=== PATIENT | male | born 1955 | race Caucasian/White ===

== ENCOUNTER 2019-08-04 10:10 | Inpatient (IN) ==
--- NOTE | 2019-08-04 11:19 | RAD ---
HISTORYSOB, CP, AFIBSTUDYCHEST, 1 VIEWCOMPARISONNoneFINDINGSThe trachea is midline. The cardiac silhouette is unremarkable . The lung apices are partially obscured by overlying soft tissues. Otherwise the visualized lungs are relatively clear without focal infiltrate or effusion. Previous CTA of the chest performed on July 14, 2019 noted aneurysmal dilatation of the ascending thoracic aorta measuring 4.8 x 4.9 centimeters. Postoperative changes of midline sternotomy are noted.IMPRESSIONNo acute cardiopulmonary disease as discussed above.Electronically signed by: KENNEDI BUSTILLO (Aug 04, 2019 11:17:36)
[2019-08-04 11:28] LABS: BASOPHILS # (AUTO) 0.1 X10^3/uL (0.0-0.1); EOSINOPHILS # (AUTO) 0.1 x10^3/uL (0.0-0.2); EOSINOPHILS % (AUTO) 0.9 % (0.9-2.9); HEMATOCRIT 44.2 % (42.0-54.0); HEMOGLOBIN 15.2 g/dL (13.5-18.0); LYMPHOCYTES # (AUTO) 1.2 X10^3/uL (1.3-2.9); MEAN CORPUSCULAR HEMOGLOBIN 31.7 pg (27.0-34.0); MEAN CORPUSCULAR HGB CONC 34.4 g/dL (33.0-35.0); MEAN PLATELET VOLUME 7.8 fL (7.4-11.0); MONOCYTES # (AUTO) 1.1 x10^3/uL (0.3-0.8); MONOCYTES % (AUTO) 15.3 % (0.0-13.0); NEUTROPHILS # (AUTO) 4.6 x10^3/uL (2.2-4.8); NEUTROPHILS % (AUTO) 65.8 % (42.0-75.0); PLATELET COUNT 218 X10^3/uL (150.0-450.0); RED BLOOD COUNT 4.81 X10^6/uL (4.7-6.0); RED CELL DISTRIBUTION WIDTH 13.9 % (11.6-16.5)
[2019-08-04] MEDS: NS 1000 ML 1,000 ML IV SCH (11:44)
[2019-08-04 11:45] LABS: BLOOD UREA NITROGEN 16 mg/dL (7-18); CALCIUM 8.7 mg/dL (8.5-10.1); CHLORIDE 98 mmol/L (98-107); COR NA(FOR HYPERGLY) 135 mmol/L (136-145); CREATININE 1.02 mg/dL (0.70-1.30); SODIUM 134 mmol/L (136-145); TROPONIN I 0.05 ng/mL (0-1.5); eGFR NON BLACK RACES > 60 (>60)
[2019-08-04 11:50] LABS: ALANINE AMINOTRANSFERASE 20 Units/L (12-78); ALBUMIN 3.6 g/dL (3.4-5.0); ALKALINE PHOSPHATASE 66 Units/L (46-116); ASPARTATE AMINO TRANSFERASE 21 Units/L (15-37); CKMB % 1.2 % (<4); CREATINE KINASE 108 Units/L (39-308); CREATINE KINASE MB 1.3 ng/mL (0-4.0); TOTAL PROTEIN 7.4 g/dL (6.4-8.2)
[2019-08-04] MEDS ORDERED: LANOXIN INJ IVP SCH (13:00)
[2019-08-04] MEDS ORDERED: NEXTERONE IV 150 MG PREMIX* 150 MG/100 ML BAG IV ONE (13:00)
[2019-08-04] MEDS ORDERED: NEXTERONE IV 360 MG PREMIX* 360 MG/200 ML BAG IV NR (13:30)
[2019-08-04 16:21] VITALS: BMI 26.9
--- NOTE | 2019-08-04 16:56 | DR.H&P ---
H&P - History & Physical for Day of: H&P Date: 08/04/19 - Chief Complaint Chief Complaint: HEART RACING, SOB, CHEST PAIN - History of Present Illness History of Present Illness: PT IS 64 WM DIRECT ADMIT FROM DR JACQUES OFFICE WITH CO CHEST PAIN AND INCREASED HEART RATE THAT STARTED OVER THE WEEKEND. PT HAD DOCUMENTED BP AND PULSE WITH RATE UP TO 150 AT HOME. PT STATES HE WAS SOB AND STAYED IN BED. PT IS CURRENTLY ON BB AND LOSARTAN FOR BP CONTROL, COUMADIN ANTICOAGULANT THERAPY DUE TO ARTIFICIAL HEART VALVE. PT HAS NO DOCUMENT HX OF ATRIAL FIBRILLATION, HAS BEEN UNDER THE CARE OF [facility]. PT HAD EKG IN OFFICE WITH AFIB, RVR. PT ADMITTED TO ICU FOR EVALUATION AND TREATMENT. - Past Medical History Past Medical History: Arthritis, GERD, Hypertension - Past Surgical History Surgical History: CABG/Valve Surgery - Social History Does patient currently use any type of tobacco product: Yes Have you used tobacco products in the last 12 months: Yes Type of Tobacco Use: Cigarettes Alcohol Use: None Drug Use: None - Medications Home Medications: Iodinated Contrast Media [Iodinated Contrast- Oral and IV Dye] Allergy (Verified 05/01/19 10:24) CONTINUE taking the following medications losartan-hydrochlorothiazide 1 tab PO DAILY 08/04/19 [History] - Review of Systems Constitutional: Weakness Eyes: No Symptoms Reported ENT: No Symptoms Reported Respiratory: Shortness of Breath Cardiovascular: Chest Pain, Palpitations, Light Headedness Gastrointestinal: No Symptoms Reported Genitourinary: No Symptoms Reported Musculoskeletal: No Symptoms Reported Skin: No Symptoms Reported Neurological: Weakness - Physical Exam Vital Signs: Temperature 98.5 F Pulse Rate [Apical] 88 Pulse Rate 107 Respiratory Rate 24 Blood Pressure [Right Arm] 113/74 Blood Pressure [Left Arm] 112/70 Blood Pressure 106/60 O2 Sat by Pulse Oximetry 94 Oriented: Normal Eyes: Normal Ear: Normal Nose: Normal Throat: Normal Respiratory: RLL Diminished, LLL Diminished Cardiovascular: Tachycardia, Irregular : Normal Auscultation: Bowel Sounds: Normal Palpation: Normal Tenderness: Normal Skin: Normal Musculoskeletal: Normal Psychiatric: Anxiety Affect: Anxious Speech Pattern: Clear, Appropriate - Assessment/Plan (1) New onset a-fib Status: Acute Plan: PT ADMITTED TO ICU. SERIAL CE AND EKG. CONTINOUS CARDIAC MONITORING AND BP CONTROL. AMIODARONE DRIP PER PROTOCOL, DIGOXIN .25 IV X 1 DOSE. ADMISSION L ABS CBC CMP BNP CXR ON ADMISSION. VERIFY HOME MEDICATION (2) Chest pain Status: Acute (3) Palpitations Status: Acute (4) Shortness of breath Status: Acute - Review H&P Reviewed: No Patient was examined?: No - Allergies Allergies/Adverse Reactions: Allergies Allergy/AdvReac Type Severity Reaction Status Date / Time Iodinated Contrast Media Allergy Verified 05/01/19 10:24 [Iodinated Contrast- Oral and IV Dye]
[2019-08-04 17:54] LABS: CKMB % 1.1 % (<4); TROPONIN I 0.06 ng/mL (0-1.5)
[2019-08-04] MEDS: NEXTERONE IV 360 MG PREMIX* 360 MG/200 ML BAG IV NR (19:45)
[2019-08-04 23:27] LABS: CKMB % 1.2 % (<4); CREATINE KINASE 85 Units/L (39-308); CREATINE KINASE MB < 1.0 ng/mL (0-4.0); TROPONIN I 0.06 ng/mL (0-1.5)
[2019-08-05] MEDS ORDERED: SOLU-Medrol 40 MG VIAL IVP ONE (00:43)
[2019-08-05] MEDS ORDERED: SOLU-Medrol 125 MG VIAL ONE (00:43)
[2019-08-05] MEDS ORDERED: SOLU-Medrol 40 MG VIAL ONE (00:45)
[2019-08-05] MEDS ORDERED: XOPENEX 1.25 MG/3 ML NEBULE NEB PRN (00:48)
[2019-08-05] MEDS: NS 1000 ML 1,000 ML IV SCH (01:01)
[2019-08-05 06:03] LABS: BASOPHILS # (AUTO) 0.1 X10^3/uL (0.0-0.1); BASOPHILS % (AUTO) 0.8 % (0.2-1.0); EOSINOPHILS % (AUTO) 0.2 % (0.9-2.9); HEMATOCRIT 40.1 % (42.0-54.0); HEMOGLOBIN 13.8 g/dL (13.5-18.0); LYMPHOCYTES # (AUTO) 0.5 X10^3/uL (1.3-2.9); LYMPHOCYTES % (AUTO) 6.6 % (21.0-51.0); MEAN CORPUSCULAR HEMOGLOBIN 31.7 pg (27.0-34.0); MEAN CORPUSCULAR HGB CONC 34.3 g/dL (33.0-35.0); MEAN CORPUSCULAR VOLUME 92.2 fL (80.0-100.0); MONOCYTES # (AUTO) 0.2 x10^3/uL (0.3-0.8); MONOCYTES % (AUTO) 2.6 % (0.0-13.0); NEUTROPHILS # (AUTO) 6.5 x10^3/uL (2.2-4.8); NEUTROPHILS % (AUTO) 89.8 % (42.0-75.0); PLATELET COUNT 206 X10^3/uL (150.0-450.0); RED BLOOD COUNT 4.35 X10^6/uL (4.7-6.0); RED CELL DISTRIBUTION WIDTH 13.9 % (11.6-16.5); WHITE BLOOD COUNT 7.3 X10^3/uL (3.6-10.0)
[2019-08-05 06:28] LABS: ALANINE AMINOTRANSFERASE 19 Units/L (12-78); ALBUMIN 3.3 g/dL (3.4-5.0); ALKALINE PHOSPHATASE 53 Units/L (46-116); ASPARTATE AMINO TRANSFERASE 23 Units/L (15-37); BLOOD UREA NITROGEN 16 mg/dL (7-18); CALCIUM 8.1 mg/dL (8.5-10.1); CHLORIDE 103 mmol/L (98-107); COR CA(FOR HYPOALB) 8.7 mg/dL (8.5-10.1); COR NA(FOR HYPERGLY) 139 mmol/L (136-145); CREATININE 0.96 mg/dL (0.70-1.30); MAGNESIUM 1.8 mg/dL (1.7-2.9); SODIUM 138 mmol/L (136-145); TOTAL PROTEIN 6.7 g/dL (6.4-8.2); eGFR NON BLACK RACES > 60 (>60)
[2019-08-05] MEDS ORDERED: TOPROL XL PO ONE (07:48)
[2019-08-05] MEDS: NEXTERONE IV 360 MG PREMIX* 360 MG/200 ML BAG IV NR (08:21)
[2019-08-05] MEDS ORDERED: COUMADIN TAB 7.5 MG PO SCH (09:00)
[2019-08-05] MEDS ORDERED: HYDROCHLOROTHIAZIDE 12.5 MG CAP PO SCH (09:00)
[2019-08-05] MEDS ORDERED: COZAAR PO SCH (09:00)
[2019-08-05] MEDS ORDERED: TOPROL XL PO SCH (09:00)
--- NOTE | 2019-08-05 09:51 | RAD ---
HISTORYAFIB/RVR, FOLLOW UPSTUDYCHEST, 1 VIEWCOMPARISONChest film August 04, 2019.FINDINGSThe trachea is midline. The cardiac silhouette is unremarkable. There are sternotomy wires and surgical clips from CABG surgery. The lungs are clear without focal infiltrate or effusion. The bony thorax is unremarkable.IMPRESSIONNo acute cardiopulmonary disease.Electronically signed by: JACINTA GRANT (Aug 05, 2019 09:50:10)
[2019-08-05] MEDS ORDERED: CORDARONE TAB 200 MG PO SCH ×2 (10:06→17:00)
[2019-08-05] MEDS ORDERED: CORDARONE TAB 200 MG ONE (10:11)
[2019-08-05 10:33] LABS: CKMB % 1.1 % (<4); CREATINE KINASE 90 Units/L (39-308); CREATINE KINASE MB < 1.0 ng/mL (0-4.0); TROPONIN I 0.02 ng/mL (0-1.5)
[2019-08-05 15:54] VITALS: BP 115/65
== END 2019-08-05 15:25 | disposition home or self-care (01) | DRG 310 ==
LOC: ICU → INTOOBSV 10:33 → OBSVTOIN 10:33
PROVIDERS: ADMIT Internal Medicine; ATTEND Internal Medicine
CPT/HCPCS: 36415; 71010; 71045; 80053; 82550; 82553; 83735; 83880; 84484; 85025; 85610; 85730; 93005; 94640; A4222; J0282; J1160; J2920; J7030